=== PATIENT | female | born 1965 | race Caucasian/White ===

== ENCOUNTER 2018-03-19 07:20 | Inpatient (IN) | payer OTHER ==
[2018-03-19] MEDS ORDERED: MAALOX 30 ML SUSP *UDC PO (17:00)
[2018-03-19] MEDS ORDERED: LORazepam 1 MG TAB PO (17:00)
[2018-03-19] MEDS ORDERED: MOM 30ML SUSPENSION UDC PO (17:00)
[2018-03-19 22:34] LABS: KETONE, URINE AUTO RFX NEGATIVE (NEGATIVE); LEUKOCYTE ESTERASE UR AUTO RFX NEGATIVE (NEGATIVE); NITRITE, URINE AUTO RFX NEGATIVE (NEGATIVE); RBC, URINE AUTO RFX 0 /HPF (0-3); SPECIFIC GRAVITY UR AUTO RFX 1.009 (1.002-1.035); SQUAM EPITHELIAL CELL UR AURFX 0 /HPF (0-6); WBC, URINE AUTO RFX 0 /HPF (0-3)
[2018-03-20 12:50] LABS: BASO % 0.1 % (0.0-1.0); EOS # 0.1 10^3/uL (0.0-0.50); EOS % 0.7 % (0.0-3.0); HEMATOCRIT 45.7 % (36.0-47.0); HEMOGLOBIN 15.5 g/dl (12.0-15.5); IMMATURE GRANULOCYTE % 0.4 % (0-3.0); LYMPH % 31.9 % (24.0-44.0); MEAN CORPUSCULAR HGB CONC 33.9 g/dl (32.0-36.5); MEAN CORPUSCULAR VOLUME 94.4 fl (80.0-96.0); MONO # 0.5 10^3/uL (0.0-0.8); MONO % 5.7 % (0.0-5.0); NEUTROPHILS # 5.8 10^3/uL (1.8-7.7); NEUTROPHILS % 61.2 % (36.0-66.0); PLATELET COUNT, AUTOMATED 286 10^3/uL (150-450); RED BLOOD COUNT 4.84 10^6/uL (4.00-5.40); RED CELL DISTRIBUTION WIDTH 13.1 % (11.5-14.5); WHITE BLOOD COUNT 9.5 10^3/uL (4.0-10.0)
[2018-03-20 13:18] LABS: ALBUMIN 3.9 GM/DL (3.2-5.2); ALBUMIN/GLOBULIN RATIO 1.15 (1.00-1.93); ALKALINE PHOSPHATASE 65 U/L (45-117); ALT/SGPT 24 U/L (12-78); ANION GAP 8 MEQ/L (8-16); AST/SGOT 12 U/L (7-37); BILIRUBIN,TOTAL 0.6 MG/DL (0.2-1.0); BLOOD UREA NITROGEN 14 MG/DL (7-18); CALCIUM LEVEL 9.2 MG/DL (8.5-10.1); CARBON DIOXIDE LEVEL 26 MEQ/L (21-32); CHLORIDE LEVEL 108 MEQ/L (98-107); CREATININE FOR GFR 0.74 MG/DL (0.55-1.30); GLOMERULAR FILTRATION RATE > 60.0 (>51); GLUCOSE, FASTING 85 MG/DL (70-100); POTASSIUM SERUM 4.4 MEQ/L (3.5-5.1); SODIUM LEVEL 142 MEQ/L (136-145); THYROID STIMULATING HORMONE 0.689 uIU/ML (0.358-3.740); TOTAL PROTEIN 7.3 GM/DL (6.4-8.2)
[2018-03-20] MEDS: risperiDONE 0.5 MG TAB PO (21:00)
[2018-03-21] MEDS: NICOTINE 21MG/24HR 1 EA TRANSDERMAL TD (12:32)
[2018-03-21] MEDS: hydrOXYzine 25 MG TAB PO (12:33)
[2018-03-21] MEDS: traZODone 50 MG TAB PO (20:05)
[2018-03-21] MEDS: risperiDONE 0.5 MG TAB PO (20:05)
[2018-03-22] MEDS: NICOTINE 21MG/24HR 1 EA TRANSDERMAL TD (09:00)
[2018-03-22] MEDS: hydrOXYzine 25 MG TAB PO (09:34)
[2018-03-22] MEDS: traZODone 50 MG TAB PO (20:04)
[2018-03-22] MEDS: risperiDONE 1 MG TAB PO (20:04)
[2018-03-23] MEDS: hydrOXYzine 25 MG TAB PO ×2 (06:37→16:50)
[2018-03-23] MEDS: NICOTINE 21MG/24HR 1 EA TRANSDERMAL TD (08:30)
[2018-03-23] MEDS: risperiDONE 0.5 MG TAB PO (09:32)
[2018-03-23] MEDS: risperiDONE 1 MG TAB PO (20:31)
[2018-03-23] MEDS: traZODone 50 MG TAB PO (20:31)
[2018-03-24] MEDS: hydrOXYzine 25 MG TAB PO ×2 (06:38→15:09)
[2018-03-24] MEDS: NICOTINE 21MG/24HR 1 EA TRANSDERMAL TD (08:25)
[2018-03-24] MEDS: risperiDONE 0.5 MG TAB PO (08:25)
[2018-03-24] MEDS: ACETAMINOPHEN TAB 650MG DOSE (2X325MG) PO (10:24)
[2018-03-24] MEDS: risperiDONE 1 MG TAB PO (20:35)
[2018-03-24] MEDS: traZODone 50 MG TAB PO (20:35)
[2018-03-25] MEDS: hydrOXYzine 25 MG TAB PO ×2 (06:30→14:58)
[2018-03-25] MEDS: risperiDONE 0.5 MG TAB PO (08:59)
[2018-03-25] MEDS: NICOTINE 21MG/24HR 1 EA TRANSDERMAL TD (09:00)
[2018-03-25] MEDS: ACETAMINOPHEN TAB 650MG DOSE (2X325MG) PO ×2 (09:00→20:26)
[2018-03-25] MEDS: traZODone 50 MG TAB PO (20:24)
[2018-03-25] MEDS: risperiDONE 1 MG TAB PO (20:25)
[2018-03-26] MEDS: hydrOXYzine 25 MG TAB PO (06:33)
[2018-03-26] MEDS: NICOTINE 21MG/24HR 1 EA TRANSDERMAL TD (09:00)
[2018-03-26] MEDS: risperiDONE 0.5 MG TAB PO (09:07)
[2018-03-26] MEDS: ACETAMINOPHEN TAB 650MG DOSE (2X325MG) PO (09:07)
== END 2018-03-26 12:55 | disposition home or self-care (01) | DRG 751 ==
LOC: M PSY 03-20 15:25 → M ED 07:20 → M ED INP 15:35 → M PSY 16:26
DX: F32.3 Major depressive disorder, single episode, severe with psychotic features (principal); F43.10 Post-traumatic stress disorder, unspecified; Z88.5 Allergy status to narcotic agent; F17.200 Nicotine dependence, unspecified, uncomplicated

== ENCOUNTER 2018-05-19 23:45 | Inpatient (IN) | payer OTHER ==
[2018-05-19] MEDS ORDERED: diphenhydrAMINE INJ 50MG/ML VIAL (J1200) As Ordered (23:49)
[2018-05-19] MEDS ORDERED: HALOPERIDOL 5 MG/ML VIAL (J1630) As Ordered (23:49)
[2018-05-19] MEDS ORDERED: LORazepam 2 MG/ML VIAL (J2060) As Ordered (23:50)
[2018-05-19] MEDS: HALOPERIDOL 5 MG/ML VIAL (J1630) IM (23:59)
[2018-05-19] MEDS: diphenhydrAMINE INJ 50MG/ML VIAL (J1200) IM (23:59)
[2018-05-19] MEDS: LORazepam 2 MG/ML VIAL (J2060) IM (23:59)
[2018-05-20 00:39] LABS: HEMATOCRIT 43.6 % (36.0-47.0); HEMOGLOBIN 14.7 g/dl (12.0-15.5); MEAN CORPUSCULAR HEMOGLOBIN 31.3 pg (27.0-33.0); MEAN CORPUSCULAR HGB CONC 33.7 g/dl (32.0-36.5); MEAN CORPUSCULAR VOLUME 92.8 fl (80.0-96.0); PLATELET COUNT, AUTOMATED 273 10^3/uL (150-450); RED CELL DISTRIBUTION WIDTH 12.2 % (11.5-14.5); WHITE BLOOD COUNT 15.3 10^3/uL (4.0-10.0)
[2018-05-20 01:45] LABS: ACETAMINOPHEN LEVEL < 2.0 UG/ML (10.0-30.0); ALBUMIN/GLOBULIN RATIO 1.25 (1.00-1.93); ALKALINE PHOSPHATASE 74 U/L (45-117); ALT/SGPT 19 U/L (12-78); ANION GAP 11 MEQ/L (8-16); AST/SGOT 16 U/L (7-37); BILIRUBIN,DIRECT 0.1 MG/DL (0.0-0.2); BILIRUBIN,TOTAL 0.6 MG/DL (0.2-1.0); BLOOD UREA NITROGEN 14 MG/DL (7-18); CALCIUM LEVEL 8.7 MG/DL (8.5-10.1); CARBON DIOXIDE LEVEL 24 MEQ/L (21-32); CHLORIDE LEVEL 106 MEQ/L (98-107); CREATININE FOR GFR 1.01 MG/DL (0.55-1.30); ETHYL ALCOHOL (ETHANOL) < 0.003 % (0.000-0.010); GLOMERULAR FILTRATION RATE > 60.0 (>51); GLUCOSE, FASTING 97 MG/DL (70-100); POTASSIUM SERUM 4.1 MEQ/L (3.5-5.1); SODIUM LEVEL 141 MEQ/L (136-145); TOTAL PROTEIN 7.2 GM/DL (6.4-8.2)
[2018-05-20 06:47] LABS: BASO % 0.2 % (0.0-1.0); IMMATURE GRANULOCYTE # 0.1 10^3/uL (0-0); IMMATURE GRANULOCYTE % 0.4 % (0-3.0); LYMPH # 2.5 10^3/uL (1.5-4.5); LYMPH % 15.9 % (24.0-44.0); MONO % 6.1 % (0.0-5.0); NEUTROPHILS % 77.4 % (36.0-66.0)
[2018-05-20 07:01] LABS: AMORPHOUS SEDIMENT RFX SMALL (NEGATIVE); KETONE, URINE AUTO RFX TRACE mg/dL (NEGATIVE); MUCUS, URINE RFX SMALL (NEGATIVE); NITRITE, URINE AUTO RFX NEGATIVE (NEGATIVE); RBC, URINE AUTO RFX 12 /HPF (0-3); SPECIFIC GRAVITY UR AUTO RFX 1.008 (1.002-1.035); SQUAM EPITHELIAL CELL UR AURFX 3 /HPF (0-6)
[2018-05-20 07:02] LABS: LEUKOCYTE ESTERASE UR AUTO RFX 3+ (NEGATIVE); WBC, URINE AUTO RFX 56 /HPF (0-3)
[2018-05-20 07:12] LABS: AMPHETAMINES LEVEL URINE NEGATIVE (NEGATIVE); BARBITURATES URINE NEGATIVE (NEGATIVE); BENZODIAZEPINES URINE NEGATIVE (NEGATIVE); CANNABINOIDS URINE NEGATIVE (NEGATIVE); COCAINE METABOLITE URINE NEGATIVE (NEGATIVE); METHADONE URINE NEGATIVE (NEGATIVE); OPIATES URINE NEGATIVE (NEGATIVE); PHENCYCLIDINE URINE NEGATIVE (NEGATIVE)
[2018-05-20] MEDS: CIPROFLOXACIN 500 MG TAB PO (09:27)
[2018-05-20] MEDS: MIRTAZAPINE 15 MG TAB PO (21:12)
[2018-05-20] MEDS: traZODone 50 MG TAB PO (21:12)
[2018-05-20] MEDS: hydrOXYzine 25 MG TAB PO (21:12)
[2018-05-20] MEDS: risperiDONE 0.5 MG TAB PO (21:12)
[2018-05-21] MEDS ORDERED: CIPROFLOXACIN 500 MG TAB PO ×2 (07:15→09:00)
[2018-05-21] MEDS: CIPROFLOXACIN 500 MG TAB PO ×2 (08:04→17:49)
[2018-05-21] MEDS ORDERED: LORazepam 1 MG TAB PO (13:00)
[2018-05-21] MEDS ORDERED: MOM 30ML SUSPENSION UDC PO (13:00)
[2018-05-21] MEDS ORDERED: traZODone 50 MG TAB PO (13:00)
[2018-05-21] MEDS ORDERED: MAALOX 30 ML SUSP *UDC PO (13:00)
[2018-05-21] MEDS: hydrOXYzine 25 MG TAB PO (17:53)
[2018-05-21] MEDS: MIRTAZAPINE 15 MG TAB PO (21:00)
[2018-05-21] MEDS: risperiDONE 1 MG TAB PO (21:00)
[2018-05-22] MEDS: CIPROFLOXACIN 500 MG TAB PO ×2 (06:22→17:38)
[2018-05-22] MEDS: risperiDONE 0.5 MG TAB PO (08:59)
[2018-05-22 10:33] LABS: KETONE, URINE AUTO RFX NEGATIVE (NEGATIVE); NITRITE, URINE AUTO RFX NEGATIVE (NEGATIVE); RBC, URINE AUTO RFX 1 /HPF (0-3); SPECIFIC GRAVITY UR AUTO RFX 1.003 (1.002-1.035); SQUAM EPITHELIAL CELL UR AURFX 1 /HPF (0-6); WBC, URINE AUTO RFX 2 /HPF (0-3)
[2018-05-22 10:41] LABS: LEUKOCYTE ESTERASE UR AUTO RFX 1+ (NEGATIVE)
[2018-05-22 10:58] LABS: HEMATOCRIT 43.4 % (36.0-47.0); HEMOGLOBIN 14.4 g/dl (12.0-15.5); MEAN CORPUSCULAR HEMOGLOBIN 31.6 pg (27.0-33.0); MEAN CORPUSCULAR HGB CONC 33.2 g/dl (32.0-36.5); MEAN CORPUSCULAR VOLUME 95.2 fl (80.0-96.0); PLATELET COUNT, AUTOMATED 246 10^3/uL (150-450); RED BLOOD COUNT 4.56 10^6/uL (4.00-5.40); RED CELL DISTRIBUTION WIDTH 12.3 % (11.5-14.5); WHITE BLOOD COUNT 7.8 10^3/uL (4.0-10.0)
[2018-05-22] MEDS: hydrOXYzine 25 MG TAB PO (11:46)
[2018-05-22] MEDS: ACETAMINOPHEN TAB 650MG DOSE (2X325MG) PO (15:42)
[2018-05-22] MEDS ORDERED: OLANZapine ORAL DISINTEGRATING TAB 5MG PO (17:30)
[2018-05-22] MEDS ORDERED: hydrOXYzine 25 MG TAB PO (17:30)
[2018-05-22] MEDS ORDERED: ISOVUE-370 76% 100ML VIAL (Q9967) As Ordered (17:53)
[2018-05-22 18:51] LABS: C REACTIVE PROTEIN QUANTITATIV 0.34 MG/DL (0.00-0.30)
[2018-05-22 19:36] LABS: ERYTHROCYTE SEDIMENTATION RATE 5 mm/hr (0-30)
[2018-05-22] MEDS: risperiDONE 1 MG TAB PO (20:29)
[2018-05-22] MEDS: MIRTAZAPINE 15 MG TAB PO (20:29)
[2018-05-23] MEDS: CIPROFLOXACIN 500 MG TAB PO ×2 (06:11→18:01)
[2018-05-23] MEDS: risperiDONE 0.5 MG TAB PO (08:05)
[2018-05-23] MEDS: ACETAMINOPHEN TAB 650MG DOSE (2X325MG) PO (08:42)
[2018-05-23] MEDS ORDERED: PROHANCE 279.3MG/ML 5ML VIAL (A9576) As Ordered (10:11)
[2018-05-23] MEDS ORDERED: PROHANCE 279.3MG/ML 15ML VIAL (A9576) As Ordered (10:11)
[2018-05-23] MEDS: hydrOXYzine 50 MG TAB PO (14:31)
[2018-05-23 18:03] LABS: TOTAL 25(OH) VITAMIN D 20.4 NG/ML (30.0-100.0)
[2018-05-23] MEDS: QUEtiapine FUMERATE XR 50 MG TABER PO (20:24)
[2018-05-23] MEDS: MIRTAZAPINE 15 MG TAB PO (21:00)
[2018-05-24] MEDS: CIPROFLOXACIN 500 MG TAB PO ×2 (06:04→17:19)
[2018-05-24] MEDS: risperiDONE 0.5 MG TAB PO (08:25)
[2018-05-24] MEDS: ACETAMINOPHEN TAB 650MG DOSE (2X325MG) PO (12:39)
[2018-05-24] MEDS: hydrOXYzine 50 MG TAB PO (15:34)
[2018-05-24] MEDS: QUEtiapine FUMERATE XR 50 MG TABER PO (20:04)
[2018-05-25] MEDS: CIPROFLOXACIN 500 MG TAB PO (06:25)
[2018-05-25 14:21] LABS: IgG P18 AB Absent (.); IgG P23 AB Absent (.); IgG P28 AB Absent (.); IgG P30 AB Absent (.); IgG P39 AB Absent (.); IgG P41 AB Absent (.); IgG P45 AB Absent (.); IgG P58 AB Absent (.); IgG P66 AB Absent (.); IgG P93 AB Absent (.); IgM P23 AB Absent (.); IgM P39 AB Absent (.); IgM P41 AB Absent (.); LYME IgG WB INTERPRETATION Negative (.); LYME IgM WB INTERPRETATION Negative (.)
[2018-05-26 00:08] LABS: ANGIOTENSIN 1 CONVERTING ENZYM 20 U/L (14-82); ANTINUCLEAR ANTIBODIES DIRECT Negative (Negative); Lyme Disease IgG/IgM Antibodie <0.91 ISR (0.00-0.90); Lyme Disease IgM Ab Quantitati <0.80 index (0.00-0.79)
== END 2018-05-25 09:35 | disposition home or self-care (01) | DRG 751 ==
LOC: M ED 23:45 → M ED INP 05-21 12:56 → M PSY 05-21 14:12
DX: F32.3 Major depressive disorder, single episode, severe with psychotic features (principal); G35 Multiple sclerosis; Z79.899 Other long term (current) drug therapy; Z88.6 Allergy status to analgesic agent; Z88.5 Allergy status to narcotic agent; F41.9 Anxiety disorder, unspecified; F17.200 Nicotine dependence, unspecified, uncomplicated; R30.0 Dysuria; D72.829 Elevated white blood cell count, unspecified